=== PATIENT | male | born 1970 | race Caucasian/White ===

== ENCOUNTER → 2023-10-19 06:21 | Day surgery (SDC) | payer OTHER, SELFPAY ==
[2023-10-19 08:08] LABS: Glucose - Point of Care 165 mg/dl (70-99)
== END ==
LOC: GI 06:21
PROVIDERS: ATTENDING PHYSICIAN Internal Medicine Gastroenterology
DX: K44.9 Diaphragmatic hernia without obstruction or gangrene (principal); K31.7 Polyp of stomach and duodenum; R12 Heartburn; K29.50 Unspecified chronic gastritis without bleeding; K31.89 Other diseases of stomach and duodenum
CPT/HCPCS: 43239; 88305; 82962; 88342